=== PATIENT | male | born 1985 | race African-American/Black ===

== ENCOUNTER 2019-12-03 13:05 | Emergency (ER) | payer OTHER, MEDICAID, SELFPAY ==
--- NOTE | 2019-12-03 | XR_ITS ---
EXAMINATION: XR HAND, LEFT CLINICAL INFORMATION: Fall COMPARISON: 02/01/2007 TECHNIQUE: 3 views of the left hand and a scaphoid view of the wrist FINDINGS: There is an avulsion fracture at the tip of the ulnar styloid, possibly acute. There is a remote, healed fracture of the 5th metacarpal with residual volar angulation. There is a small ossification dorsal to the 4th DIP joint which may represent an avulsion fracture, likely chronic. Correlate clinically. IMPRESSION: Avulsion fracture at the tip of the ulnar styloid, possibly acute. Remote, healed fracture of the 5th metacarpal and probable remote avulsive injury at the dorsal aspect of the 4th DIP joint.
[2019-12-03 13:20] VITALS: BP 162/92; PULSE 94; RESP 16; TEMP 37.3; O2SAT 97; BMI 34.7
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
== END 2019-12-03 14:40 | disposition home or self-care (01) ==
PROVIDERS: Emergency Provider Emergency Medicine
DX: S52.615A Nondisplaced fracture of left ulna styloid process, initial encounter for closed fracture (principal); W17.89XA Other fall from one level to another, initial encounter; Y93.9 Activity, unspecified; Y92.9 Unspecified place or not applicable; Y99.9 Unspecified external cause status
CPT/HCPCS: 29125; 73110; 73130; 99284

== ENCOUNTER 2020-02-09 10:09 | Outpatient (REF) | payer OTHER, MEDICAID, SELFPAY | END 2020-02-09 10:10 | disposition home or self-care (01) | LOC: HO.LAB 10:09 | PROVIDERS: Visit Provider Internal Medicine | DX: Z20.828 Contact with and (suspected) exposure to other viral communicable diseases (principal) | CPT/HCPCS: C9803; U0003 ==

== ENCOUNTER 2020-02-22 23:20 | Emergency (ER) | payer OTHER, MEDICAID, SELFPAY ==
[2020-02-22 23:40] VITALS: BP 157/90; PULSE 93; RESP 20; TEMP 36.7; O2SAT 99; BMI 35.2
[2020-02-22] MEDS: Ketorolac Tromethamine 15 MG/ML VIAL IVPUSH (23:53)
[2020-02-22] MEDS: Acetaminophen 325 MG TABLET 975 MG PO (23:53)
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
--- NOTE | 2020-02-23 01:13 | PC.NURSE ---
CALL OUT PLACED TO [facility] @ DR DAS REQUEST @ [phone] DR DAS TAKES OVER CALL RIGHT AWAY
--- NOTE | 2020-02-23 01:33 | PC.NURSE ---
RETURN CALL FROM BETH @ [facility] @ THIS TIME ASKS TO SPEAK WITH DR PIPPA DAS TAKES OVER CALL
== END 2020-02-23 01:50 | disposition home or self-care (01) ==
PROVIDERS: Emergency Provider Student in an Organized Health Care Education/Training Program
DX: T23.361A Burn of third degree of back of right hand, initial encounter (principal); T31.0 Burns involving less than 10% of body surface; S60.511A Abrasion of right hand, initial encounter; X10.2XXA Contact with fats and cooking oils, initial encounter; Y93.G3 Activity, cooking and baking; Y92.000 Kitchen of unspecified non-institutional (private) residence as the place of occurrence of the external cause; Y99.9 Unspecified external cause status; Z23 Encounter for immunization
CPT/HCPCS: 90471; 90715; 96374; 99283; 99284; J1885

== ENCOUNTER 2020-03-01 10:51 | Emergency (ER) | payer OTHER, MEDICAID, SELFPAY ==
[2020-03-01 11:38] VITALS: BP 127/77; PULSE 86; RESP 16; TEMP 36.5; O2SAT 96; BMI 35.1
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
== END 2020-03-01 12:03 | disposition home or self-care (01) ==
LOC: HO.ED 12:00
PROVIDERS: Emergency Provider Emergency Medicine
DX: Z48.00 Encounter for change or removal of nonsurgical wound dressing (principal); T23.201D Burn of second degree of right hand, unspecified site, subsequent encounter; X10.2XXD Contact with fats and cooking oils, subsequent encounter
CPT/HCPCS: 99283; 99284

== ENCOUNTER 2020-04-11 00:16 | Emergency (ER) | payer MEDICAID, SELFPAY ==
[2020-04-11 00:21] VITALS: BP 153/92; PULSE 91; RESP 18; TEMP 36.7; O2SAT 97
== END 2020-04-11 00:46 | disposition left against medical advice (07) ==
PROVIDERS: Emergency Provider Emergency Medicine
DX: K08.89 Other specified disorders of teeth and supporting structures (principal)

== ENCOUNTER 2020-06-11 09:31 | Outpatient (REF) | payer MEDICAID, SELFPAY ==
[2020-06-11 11:23] LABS: COVID-19 Test Negative (Negative); IDNOW Serial# 55D5AD1C
== END 2020-06-11 09:32 | disposition home or self-care (01) ==
LOC: HO.LAB 09:31
PROVIDERS: Visit Provider Internal Medicine
DX: Z20.822 Contact with and (suspected) exposure to COVID-19 (principal)
CPT/HCPCS: 36415; 87635; C9803

== ENCOUNTER 2020-07-24 17:39 | Emergency (ER) | payer MEDICAID, SELFPAY ==
--- NOTE | ~2020-07-24 | XR_ITS ---
EXAMINATION: XR CHEST CLINICAL INFORMATION: Shortness of breath. COMPARISON: Multiple priors, most recent chest radiograph dated 11/13/2019 TECHNIQUE: Frontal view of the chest was obtained. FINDINGS: The lungs are clear. The cardiomediastinal silhouette is normal in size. There is no pleural effusion or pneumothorax. No acute osseous abnormality. XR/XR chest 1V IMPRESSION: No acute cardiopulmonary findings.
[2020-07-24 18:10] VITALS: BP 147/78; PULSE 73; RESP 22; TEMP 36.8; O2SAT 98; BMI 35.2
[2020-07-24] MEDS: predniSONE 20 MG TABLET 40 MG PO (19:46)
[2020-07-24] MEDS: Albuterol/Iprat 2.5/0.5MG 3 ML AMPUL.NEB INHALE (20:07)
[2020-07-24 20:11] VITALS: PULSE 87; O2SAT 92
[2020-07-24] MEDS: Albuterol Sulfate 90 MCG 8 GM INHALER 2 PUFF INHALE (20:20)
--- NOTE | 2020-07-24 20:48 | ED_ITS ---
HPI - Asthma General Chief Complaint: Upper Respiratory Symptoms Stated Complaint: asthma Time Seen by Provider: 07/24/20 19:01 Source: patient Mode of arrival: ambulatory History of Present Illness HPI Narrative: 35-year-old male with a past medical history of asthma presenting to the ED complaining of asthma exacerbation with worsening SOB and chest tightness x today. Reports intermittent mild nonproductive cough. Reports ran out of albuterol inhalers a few days ago. Denies fever, chills, LE edema, recent travel, history of blood clots, abdominal pain, nausea/vomiting complaint: asthma attack and shortness of breath Related Data Previous Rx's Medication Instructions Recorded albuterol sulfate 2 puff INHALATION Q4-6H PRN #6.7 g 07/24/20 prednisone 40 mg PO DAILY 5 Days #10 tab 07/24/20 Allergies Allergy/AdvReac Type Severity Reaction Status Date / Time No Known Allergies [NKA] Allergy Mild NA Verified 12/03/19 13:12 Review of Systems Review of Systems: Constitutional: No Fever, No Chills, No Fatigue, No Malaise Cardiovascular: +chest tightness, + SOB, No Dyspnea on Exertion, No Orthopnea, No Edema, No Palpitations Respiratory: + Cough, No Sputum, + Wheezing, No Smoke Exposure Gastrointestinal: No Nausea, No Vomiting, No Diarrhea, No Constipation, No Abdominal pain Musculoskeletal: No joint pain, No Myalgias, No Joint Swelling Skin: No Skin Lesions, No rash Neuro: No Headache Yes all other systems are reviewed and are negative PMFSH Past Medical History Medical History Asthma Social History Social History Alcohol intake: never Advance Directives: No Advance Directives Information Provided: No Physical Exam Vital Signs: Vital Signs: Last Vital Signs Temp 98.2 F 07/24/20 18:10 Pulse 87 07/24/20 20:11 Resp 22 H 07/24/20 18:10 BP 147/78 H 07/24/20 18:10 Pulse Ox 98 07/24/20 18:10 Body Mass Index 35.2 Const: General: cooperative and healthy appearing Orientation/consciou sness: patient oriented x3 Limitations: no limitations HENMT: Head: Yes normal to inspection Ears: hearing grossly normal bilaterally General nose exam: Normal external nose present Face and sinus: Yes normal facial exam Eyes: General: appearance normal, both eyes and all related structures EOM: EOMs intact bilaterally Neck: Neck: Yes normal visual inspection and Yes no meningeal signs Resp: Effort & Inspection: normal respiratory effort Auscultation: wheezes expiratory wheezes and throughout Cardio: Rate: regular rate Heart sounds: S1 normal heart sound present and S2 normal heart sound present GI: Inspection: Yes normal to inspection Skin: Rashes: no rashes Wounds: no wounds Neuro: General: patient oriented x3 and no meningeal signs Gait exam (Neuro): Normal gait present Extrem: General: Yes normal to inspection, Yes no pedal edema and Yes no calf tenderness Course Course Course Narrative: --COVID-19 negative. CXR unremarkable. On re-evaluation patient with lungs CTA, ambulating in the ED on phone, in no respiratory distress. Worrisome signs and symptoms and strict return precautions discussed. Supplied with albuterol inhaler MDM - Asthma MDM Narrative Medical decision making narrative: 35-year-old male with a past medical history of asthma presenting to the ED complaining of asthma exacerbation with worsening SOB and chest tightness x today. On exam initially tachypneic, NAD, nontoxic appearing, lungs with diffuse expiratory wheeze, no LE edema or calf tenderness. Patient refusing IV line. Concern for asthma exacerbation vs pneumonia vs COVID-19/viral syndrome. Low concern for severe sepsis Plan: CXR, COVID-19 testing, DuoNeb, prednisone, reassess Medical Records Attestation: I reviewed the patient's medical records. Lab Data Attestation: I reviewed the patient's lab results. Discharge Plan Discharge Clinical Impression: Asthma with acute exacerbation Patient Disposition: Home, Self-Care Instructions: Asthma (ED) Additional Instructions: Your COVID-19 was negative. Her x-ray was unremarkable. Your having an asthma exacerbation Use albuterol inhaler at home as well as prednisone If her symptoms persist or worsen, if constant worsening shortness of breath or chest pain or fever return to the ED Follow-up with your doctor Prescriptions: New albuterol sulfate 90 mcg/actuation HFA aerosol inhaler 2 puff inhalation Q4-6H PRN (Reason: shortness of breath or wheezing) Qty: 6.7 RF: 0 prednisone 20 mg tablet 40 mg PO DAILY 5 Days Qty: 10 RF: 0 Referrals: [facility] [Primary Care Provider] - 2 days
[2020-07-24 20:52] LABS: COVID-19 Test Negative (Negative)
== END 2020-07-24 21:08 | disposition home or self-care (01) ==
PROVIDERS: Physician Assistant; Emergency Provider Internal Medicine
DX: J45.901 Unspecified asthma with (acute) exacerbation (principal); Z79.899 Other long term (current) drug therapy; Z20.822 Contact with and (suspected) exposure to COVID-19
CPT/HCPCS: 36415; 71045; 87635; 94640; 99284

== ENCOUNTER 2020-08-29 16:47 | Emergency (ER) | payer MEDICAID, SELFPAY ==
--- NOTE | 2020-08-29 16:56 | PC.NURSE ---
PT LEFT THE WR @1650 STATING HE WOULD BE BACK AFTER PICKING UP HIS DAUGHTER
== END 2020-08-29 17:24 | disposition left against medical advice (07) ==
PROVIDERS: Emergency Provider Emergency Medicine
DX: J45.909 Unspecified asthma, uncomplicated (principal)

== ENCOUNTER 2020-09-04 11:24 | Emergency (ER) | payer MEDICAID, SELFPAY ==
[2020-09-04 11:33] VITALS: BP 150/97; PULSE 72; RESP 16; TEMP 37.1; O2SAT 99; BMI 36.6
== END 2020-09-04 12:18 | disposition left against medical advice (07) ==
PROVIDERS: Emergency Provider Emergency Medicine; PCP Internal Medicine
DX: J45.909 Unspecified asthma, uncomplicated (principal)
CPT/HCPCS: 99281; 99282

== ENCOUNTER 2020-09-04 18:45 | Emergency (ER) | payer MEDICAID, SELFPAY ==
[2020-09-04 18:50] VITALS: BP 106/75; PULSE 97; RESP 18; TEMP 36.9; O2SAT 96; BMI 36.6
--- NOTE | 2020-09-04 19:29 | ED_ITS ---
HPI - Asthma General Chief Complaint: Asthma Stated Complaint: asthma Time Seen by Provider: 09/04/20 19:28 Source: patient Limitations: no limitations History of Present Illness HPI Narrative: This is a 35-year-old male with a history of asthma, who has run out of his albuterol for his nebulizer, as well as his albuterol inhaler. The patient is noted wheezing over the last couple of days. He denies any cough or fever. Denies any recent cold symptoms. He does use tobacco. He denies any chest pain, or swelling in his lower extremities. Symptoms are described as moderate, worse with exertion Related Data Previous Rx's Medication Instructions Recorded albuterol sulfate 2 puff INHALATION Q4-6H PRN #8.5 g 09/04/20 albuterol sulfate 2.5 mg INHALATION Q4-6H PRN #30 ea 09/04/20 prednisone 40 mg PO DAILY #10 tab 09/04/20 Allergies Allergy/AdvReac Type Severity Reaction Status Date / Time No Known Allergies [NKA] Allergy Mild NA Verified 12/03/19 13:12 Review of Systems Review of Systems: Yes all other systems are reviewed and are negative Constitutional: Constitutional: Reports as per HPI and Denies fever(s) Eyes: Eyes: Reports as per HPI and Reports no additional eye complaints ENT: Reports system reviewed and no additional complaints, except as documented, Reports as per HPI, Denies nasal congestion, Denies nasal discharge and Denies sore throat Cardiovascular: Cardiovascular: Reports as per HPI, Denies chest pain and Reports dyspnea Respiratory: Respiratory: Reports as per HPI, Denies cough, Reports dyspnea and Reports wheezing Gastrointestinal: Gastrointestinal: Reports as per HPI, Denies abdominal pain, Denies diarrhea and Denies vomiting Genitourinary: Genitourinary: Reports as per HPI, Denies hematuria, Denies dysuria and Denies urinary frequency Musculoskeletal: Musculoskeletal: Reports no additional musculoskeletal complaints and Denies numbness Integumentary/Breasts: Skin/Breast: Reports as per HPI and Denies rash Neurologic: Reports as per HPI, Denies focal weakness, Denies numbness and Denies Sensory deficit (Neuro) Psychiatric: Psychiatric: Reports no additional psychiatric complaints and Reports as per HPI Endocrine: Endocrine: Reports no additional endocrine complaints and Reports as per HPI Hematologic/Lymphatic: Hematologic/Lymphatic: Reports no additional hematologic/lymphatic complaints, Reports as per HPI and Reports other (No peripheral edema) Allergic/Immunologic: Allergic/Immunologic: Reports wheezing [facility] Past Medical History Medical History Asthma Social History Social History Alcohol intake: never Advance Directives: No Physical Exam Vital Signs: Vital Signs: Last Vital Signs Temp 98.4 F 09/04/20 18:50 Pulse 87 09/04/20 19:42 Resp 18 09/04/20 18:50 BP 106/75 09/04/20 18:50 Pulse Ox 96 09/04/20 18:50 Body Mass Index 36.6 Const: General: cooperative, no acute distress and alert Orientation/consciousness: patient oriented x3 HENMT: Head: Yes normal to inspection Eyes: General: appearance normal, both eyes and all related structures Eyelids: Yes eyelids normal Conjunctivae: conjunctivae normal Pupils: Equal, round and reactive pupils present Neck: Neck: Yes normal visual inspection and Yes supple Chest: Chest palpation & inspection: normal inspection of the chest Resp: Effort & Inspection: normal respiratory effort, able to speak in complete sentences, no cough, no respiratory distress, no use of accessory muscles and prolonged expiratory phase Auscultation: not clear to auscultation bilaterally and wheezes (Expiratory) Cardio: Rate: regular rate Rhythm: regular rhythm Heart sounds: S1 normal heart sound present, S2 normal heart sound present, no gallops, no murmurs and no rubs GI: Palpation (GI): Soft to palpation, nontender and Other GI palpation findings present (Non-distended) Auscultation: normal bowel sounds Skin: General skin exam: no rashes or lesions noted Neuro: General: patient oriented x3, no focal motor deficits and CN's II-XI in tact bilaterally Cranial nerves: Yes Equal, round and reactive pupils present Cognition (Neuro): normal cognition Motor exam (neuro): 5/5 motor strength present throughout Sensory Exam: No Sensory deficit (Neuro) Extrem: General: Yes normal to inspection and Yes no pedal edema Psych: Appearance: grossly normal Affect: normal affect MDM - Asthma MDM Narrative Medical decision making narrative: Patient no distress, pulse ox 99% on room air, but with moderate wheezing. Patient was given a DuoNeb treatment and prednisone 60 mg p.o.. His albuterol MDI and albuterol for his nebulizer being refilled and he is being put on prednisone 40 mg daily for 5 days. Discharge Plan Discharge Clinical Impression: Acute asthma exacerbation Patient Disposition: Home, Self-Care Instructions: Asthma (ED) Additional Instructions: Follow-up with primary care physician. Return for any new or worsened symptoms. Use the albuterol prednisone as prescribed. Prescriptions: New albuterol sulfate 90 mcg/actuation HFA aerosol inhaler 2 puff inhalation Q4-6H PRN (Reason: shortness of breath or wheezing) Qty: 8.5 RF: 2 albuterol sulfate 2.5 mg/0.5 mL solution for nebulization 2.5 mg inhalation Q4-6H PRN (Reason: shortness of breath or wheezing) Qty: 30 RF: 1 prednisone 20 mg tablet 40 mg PO DAILY Qty: 10 RF: 0 Discontinued albuterol sulfate 90 mcg/actuation HFA aerosol inhaler 2 puff inhalation Q4-6H PRN (Reason: shortness of breath or wheezing) Qty: 6.7 RF: 0 prednisone 20 mg tablet 40 mg PO DAILY 5 Days Qty: 10 RF: 0 Stand Alone Forms: Work/School Release Interventions: ED Discharge Assessment Last Done: 09/04/20 19:58 Discharge Date/Time: 09/04/20 19:59
[2020-09-04] MEDS: Albuterol/Iprat 2.5/0.5MG 3 ML AMPUL.NEB INHALE (19:41)
[2020-09-04 19:42] VITALS: PULSE 87; O2SAT 98
[2020-09-04] MEDS: predniSONE 20 MG TABLET 60 MG PO (19:52)
== END 2020-09-04 19:59 | disposition home or self-care (01) ==
PROVIDERS: Emergency Provider Emergency Medicine; PCP Internal Medicine
DX: J45.901 Unspecified asthma with (acute) exacerbation (principal)
CPT/HCPCS: 94640; 99283; 99284

== ENCOUNTER 2020-10-15 21:17 | Emergency (ER) | payer MEDICAID, SELFPAY ==
--- NOTE | ~2020-10-15 | XR_ITS ---
EXAMINATION: XR CHEST CLINICAL INFORMATION: Shortness of breath COMPARISON: 07/24/2020 TECHNIQUE: Frontal view of the chest was obtained. FINDINGS: The lungs are well expanded. There is no focal consolidation, edema, or effusion. No pneumothorax. The cardiomediastinal silhouette is within normal limits. No acute osseous abnormality. XR/XR chest 1V IMPRESSION: Clear lungs.
[2020-10-15 21:28] VITALS: BP 141/82; PULSE 86; RESP 20; TEMP 36.5; O2SAT 96; BMI 35.9
[2020-10-15 22:05] LABS: MANUAL DIFF FLAG NO
[2020-10-15 22:06] LABS: Basophils Percent Auto 0.4 % (0-2); Eosinophils Absolute Auto 0.3 X10*3/uL (0.0-0.4); Eosinophils Percent Auto 2.7 % (0-4); Hematocrit 47.3 % (42-52); Hemoglobin 16.2 g/dl (14.0-18.0); Imm Gran Abs Auto 0.04 X10*3/uL (0.00-0.03); Imm Gran Pct Auto 0.4 % (0.0-0.4); Lymphocytes Absolute Auto 3.3 X10*3/uL (1.2-4.9); Lymphocytes Percent Auto 32.7 % (20-40); Mean Corpuscular HGB Conc 34.2 g/dl (31.0-36.0); Mean Corpuscular Hemoglobin 29.2 pg (27.0-33.0); Mean Corpuscular Volume 85.2 fL (80-98); Mean Platelet Volume 10.3 fL (9.4-12.4); Monocytes Absolute Auto 0.8 X10*3/uL (0.1-1.2); Monocytes Percent Auto 7.6 % (2-11); Neutrophils Absolute Auto 5.6 X10*3/uL (2.0-8.3); Neutrophils Percent Auto 56.2 % (45-73); Platelet Count 279 X10*3/uL (160-400); Red Blood Count 5.55 X10*6/uL (4.60-5.80); Red Cell Distribution Width 13.2 % (11.0-16.0)
[2020-10-15 22:26] LABS: COVID-19 Test Negative (Negative); IDNOW Serial# 9DD0AD1C
[2020-10-15 22:28] LABS: Alanine Aminotransferase 50 U/L (0-40); Albumin Level 4.6 g/dL (3.5-5.0); Alkaline Phosphatase 108 U/L (39-117); Anion Gap 15 (12-20); Aspartate Amino Transferase 33 U/L (5-37); Bilirubin Total 0.5 mg/dL (0.0-1.0); Blood Urea Nitrogen 9 mg/dL (9-16); Calcium 9.2 mg/dL (8.4-10.2); Carbon Dioxide 22 mmol/L (22-29); Chloride 110 mmol/L (96-108); Creatinine Clr Calc Pharmacy 145.3; Estimated Glomerular Filt Rate > 60; Glucose Random 96 mg/dL (60-115); Potassium 3.7 mmol/L (3.3-5.1); Sodium 143 mmol/L (135-145); Total Protein 7.2 g/dL (6.5-8.0)
--- NOTE | 2020-10-15 23:57 | ED.SOB ---
HPI - SOB/Dyspnea General Chief Complaint: Dyspnea Stated Complaint: Asthma Time Seen by Provider: 10/15/20 23:56 Source: patient Mode of arrival: ambulatory Limitations: no limitations History of Present Illness HPI Narrative: 35-year-old male with history of asthma came in for evaluation of asthma and wheezing. This is a 35-year-old male with a smoker with long history of asthma since childhood came in with shortness of breath and wheezing for the past couple days, patient lost his inhaler last week unable to use inhaler. Patient declined any recent hospitalization or ICU admission, patient also declined any history of endotracheal intubation for his asthma. No sick contacts, no recent travel. Related Data Previous Rx's Medication Instructions Recorded albuterol sulfate 2.5 mg/0.5 mL 2.5 mg INHALATION Q4-6H PRN #30 ea 09/04/20 solution for nebulization albuterol sulfate 90 mcg/actuation 2 puff INHALATION Q4-6H PRN #8.5 g 09/04/20 aerosol inhaler prednisone 20 mg tablet 40 mg PO DAILY #10 tab 09/04/20 albuterol sulfate 90 mcg/actuation 1 inh INHALATION QID PRN #6.7 g 10/16/20 aerosol inhaler prednisone 20 mg tablet 20 mg PO BID #10 tab 10/16/20 Allergies Allergy/AdvReac Type Severity Reaction Status Date / Time No Known Allergies [NKA] Allergy Mild NA Verified 12/03/19 13:12 Review of Systems Review of Systems: All other systems are reviewed and are negative Constitutional: Reports as per HPI and Reports no additional constitutional complaints Eyes: Reports as per HPI and Reports no additional eye complaints Reports system reviewed and no additional complaints, except as documented Cardiovascular: Reports as per HPI and Reports no additional cardiovascular complaints Respiratory: Reports as per HPI and Reports no additional respiratory complaints Gastrointestinal: Reports as per HPI and Reports no additional gastrointestinal complaints Genitourinary: Reports no additional female genitourinary complaints Musculoskeletal: Reports no additional musculoskeletal complaints Skin/Breast: Reports system reviewed and no additional complaints, except as docu Psychiatric: Reports no additional psychiatric complaints Endocrine: Reports no additional endocrine complaints Hematologic/Lymphatic: Reports no additional hematologic/lymphatic complaints Allergic/Immunologic: Reports no additional allergic/immunologic complaints Reports system reviewed and no additional complaints, except as documented and Reports Abnormal speech present [facility] Past Medical History Medical History Asthma Social History Social History Alcohol intake: never Advance Directives: No Physical Exam Vital Signs: Vital Signs: Last Vital Signs Temp 97.7 F 10/15/20 21:28 Pulse 83 10/16/20 00:03 Resp 20 10/15/20 21:28 BP 141/82 H 10/15/20 21:28 Pulse Ox 96 10/15/20 21:28 Body Mass Index 35.9 Vital signs have been reviewed as appeared to be correct. Blood pressure normal. Heart rate normal. Respiration rate normal. Temperature normal. Oxygen saturation normal. Appearance: Alert. Oriented X3. No acute distress. Head: Normal external exam. Normocephalic. Atraumatic. No Townsend signs noted. No raccoon eyes noted Eyes: PERRLA. EOMI. Conjunctiva and sclera normal. Eyelids normal. ENT: TM's Normal. Pharynx normal. Uvula midline. Moist mucous membranes. No trismus noted. No drooling noted. No muffled voice noted. Neck: Normal inspection. Neck supple. FROM. No adenopathy. Thyroid Normal. No meningeal signs. No neck mass noted. CVS: Normal heart rate and rhythm. Heart sound normal. No murmurs noted. Pulses normal throughout. Respiratory: No respiratory distress. Painless inspiration. Breath sounds normal. Diffuse mild expiratory wheezing with prolonged expiration. Chest nontender. No accessory muscle usage noted or decreased air movement noted. Abdomen: Soft and nontender. Bowel sounds normal in all 4 quadrants. No distention noted. No organomegaly noted. No visible injury noted. Back: No CVA tenderness. Full range of motion noted. Skin: Skin warm and dry. Normal skin color. Normal skin turgor. No rashes/lesions/lacerations noted. Extremities: No lower extremity edema. Extremities exhibit normal range of motion. Extremities nontender. Neuro: Oriented X 3. Cranial nerve exam: II-XII are grossly intact No motor deficit. No sensory deficit. Reflexes normal. Course Course Course Narrative: Assessment and plan. 35-year-old male history of asthma presented with wheezing and difficulty breathing due to asthma exacerbation. Patient feels better after received steroid and bronchodilator in the emergency department. Will discharge home on prednisone/albuterol inhaler. MDM - SOB/Dyspnea Lab Data Attestation: I reviewed the patient's lab results. Result diagrams: 10/15/20 21:56 10/15/20 21:56 Labs: Lab Results 10/15/20 10/15/20 10/15/20 Range/Units 21:56 21:56 21:56 WBC 10.0 (4.8-10.8) X10*3/uL RBC 5.55 (4.60-5.80) X10*6/uL Hgb 16.2 (14.0-18.0) g/dl Hct 47.3 (42-52) % MCV 85.2 (80-98) fL MCH 29.2 (27.0-33.0) pg MCHC 34.2 (31.0-36.0) g/dl RDW 13.2 (11.0-16.0) % Plt Count 279 (160-400) X10*3/uL MPV 10.3 (9.4-12.4) fL Immature Gran % (Auto) 0.4 (0.0-0.4) % Neut % (Auto) 56.2 (45-73) % Lymph % (Auto) 32.7 (20-40) % [place] % (Auto) 7.6 (2-11) % Eos % (Auto) 2.7 (0-4) % Baso % (Auto) 0.4 (0-2) % Lymph # (Auto) 3.3 (1.2-4.9) X10*3/uL [place] # (Auto) 0.8 (0.1-1.2) X10*3/uL Eos # (Auto) 0.3 (0.0-0.4) X10*3/uL Baso # (Auto) 0.0 (0.0-0.2) X10*3/uL Abs Immat Gran (auto) 0.04 H (0.00-0.03) X10*3/uL Absolute Neuts (auto) 5.6 (2.0-8.3) X10*3/uL Absolute Nucleated RBC 0.000 (0.0-0.012) X10*3/uL Nucleated RBC % (auto) 0.0 (0.0-0.2) /100WBC Sodium 143 (135-145) mmol/L Potassium 3.7 (3.3-5.1) mmol/L Chloride 110 H (96-108) mmol/L Carbon Dioxide 22 (22-29) mmol/L Anion Gap 15 (12-20) BUN 9 (9-16) mg/dL Creatinine 0.95 (0.5-1.4) mg/dL Estim Creat Clear Calc 145.3 Estimated GFR > 60 Random Glucose 96 (60-115) mg/dL Calcium 9.2 (8.4-10.2) mg/dL Total Bilirubin 0.5 (0.0-1.0) mg/dL AST 33 (5-37) U/L ALT 50 H (0-40) U/L Alkaline Phosphatase 108 (39-117) U/L Total Protein 7.2 (6.5-8.0) g/dL Albumin 4.6 (3.5-5.0) g/dL COVID-19 (KASEY) Negative (Negative) COVID-19 Clin Com See Note Imaging Data Chest x-ray: Radiologist's impression: Unremarkable chest x-ray. Discharge Plan Discharge Clinical Impression: Asthma with exacerbation Qualifiers: Asthma severity: moderate Asthma persistence: unspecified Qualified Code(s): J45.901 - Unspecified asthma with (acute) exacerbation Patient Disposition: Home, Self-Care Instructions: Asthma (ED) Prescriptions: New prednisone 20 mg tablet 20 mg PO BID Qty: 10 RF: 0 albuterol sulfate 90 mcg/actuation HFA aerosol inhaler 1 inh inhalation QID PRN (Reason: shortness of breath or wheezing) Qty: 6.7 RF: 0 No Action albuterol sulfate 90 mcg/actuation HFA aerosol inhaler 2 puff inhalation Q4-6H PRN (Reason: shortness of breath or wheezing) Qty: 8.5 RF: 2 albuterol sulfate 2.5 mg/0.5 mL solution for nebulization 2.5 mg inhalation Q4-6H PRN (Reason: shortness of breath or wheezing) Qty: 30 RF: 1 prednisone 20 mg tablet 40 mg PO DAILY Qty: 10 RF: 0 Referrals: Sabrina Sandoval MD [Primary Care Provider] - 2 days Stand Alone Forms: Work/School Release
[2020-10-16] MEDS: Albuterol Sulfate (0.083%) 2.5 MG/3 ML VIAL.NEB 5 MG INHALE (00:02)
[2020-10-16] MEDS: Albuterol/Iprat 2.5/0.5MG 3 ML AMPUL.NEB INHALE (00:02)
[2020-10-16 00:03] VITALS: PULSE 83; O2SAT 95
[2020-10-16] MEDS: predniSONE 20 MG TABLET 60 MG PO (00:04)
[2020-10-16] MEDS: Albuterol Sulfate 90 MCG 8 GM INHALER 2 PUFF INHALE (00:10)
== END 2020-10-16 01:04 | disposition home or self-care (01) ==
PROVIDERS: Emergency Provider Emergency Medicine; PCP Internal Medicine
DX: J45.901 Unspecified asthma with (acute) exacerbation (principal); Z20.822 Contact with and (suspected) exposure to COVID-19
CPT/HCPCS: 36415; 71045; 80053; 85025; 87635; 94640; 94644; 99283; 99284

== ENCOUNTER 2020-12-04 20:34 | Emergency (ER) | payer MEDICAID, SELFPAY | END 2020-12-04 21:47 | disposition left against medical advice (07) | LOC: HO.ED 21:44 | PROVIDERS: Emergency Provider Emergency Medicine; PCP Internal Medicine | DX: K08.89 Other specified disorders of teeth and supporting structures (principal) ==

== ENCOUNTER 2020-12-07 09:28 | Outpatient (REF) | payer MEDICAID, SELFPAY | END 2020-12-07 09:29 | disposition home or self-care (01) | LOC: HO.LAB 09:28 | PROVIDERS: PCP Internal Medicine; Visit Provider Internal Medicine | DX: Z20.822 Contact with and (suspected) exposure to COVID-19 (principal) | CPT/HCPCS: C9803; U0003; U0005 ==

== ENCOUNTER 2021-01-03 03:41 | Emergency (ER) | payer MEDICAID, SELFPAY ==
[2021-01-03 03:58] VITALS: BP 148/67; PULSE 72; RESP 16; TEMP 36.2; O2SAT 97; BMI 35.9
--- NOTE | 2021-01-03 04:34 | ED.DENTAL ---
HPI - Dental/Oral General Chief complaint: Dental/Oral Stated complaint: dental pain Time Seen by Provider: 01/03/21 04:25 Source: patient Mode of arrival: ambulatory Limitations: no limitations History of Present Illness HPI Narrative: 35-year-old male who presents emergency department for evaluation right lower jaw pain. The patient states that he has a tooth in his right lower jaw that is chipped. He had dental pain approximately 1 week prior and had a tooth extracted in the right lower jaw. He states that he was feeling better until yesterday when he started to get swelling and pain in his right lower jaw. He states that the pain is a constant, aching sensation which is moderate in intensity. The pain is worse if he tries to chew food with his right side of his mouth. He denied any difficulty swallowing. He denied headache. He denied fever or chills. Related Data Previous Rx's Medication Instructions Recorded albuterol sulfate 2.5 mg/0.5 mL 2.5 mg (0.5 mL) INHALATION Q4-6H 09/04/20 solution for nebulization PRN #30 ea albuterol sulfate 90 mcg/actuation 2 puff INHALATION Q4-6H PRN #8.5 g 09/04/20 aerosol inhaler prednisone 20 mg tablet 40 mg PO DAILY #10 tab 09/04/20 albuterol sulfate 90 mcg/actuation 1 inh INHALATION QID PRN #6.7 g 10/16/20 aerosol inhaler prednisone 20 mg tablet 20 mg PO BID #10 tab 10/16/20 clindamycin HCl 300 mg capsule 300 mg PO TID 7 Days #21 cap 01/03/21 (Cleocin HCl) ibuprofen 600 mg tablet 600 mg PO Q6H PRN #30 tab 01/03/21 Allergies Allergy/AdvReac Type Severity Reaction Status Date / Time No Known Allergies [NKA] Allergy Mild NA Verified 12/03/19 13:12 Review of Systems Review of Systems: Yes all other systems are reviewed and are negative [facility] Past Medical History [facility] Narrative: Past surgical history: None social history: He does smoke cigarettes. He denies alcohol use. He denies drug use. Medical History Asthma Social History Social History Alcohol intake: never Advance Directives: No Advance Directives Information Provided: Yes Physical Exam Vital Signs: Vital Signs: Last Vital Signs Temp 97.1 F 01/03/21 03:58 Pulse 72 01/03/21 03:58 Resp 16 01/03/21 03:58 BP 148/67 H 01/03/21 03:58 Pulse Ox 97 01/03/21 03:58 Body Mass Index 35.9 Const: Other: Awake, alert, male patient, he does not appear to be in distress, he is very pleasant cooperative. Orientation/consciousness: oriented to person and oriented to place HENMT: Head: Yes normal to inspection Ears: external ears normal General nose exam: Normal external nose present Face and sinus: Yes other (Mild tenderness with palpation of the right lower jaw, no swelling, no eryt) Mouth: Normal oral and palatal mucosa present Teeth image: 1. Tooth number 30: Volume loss with a large healing, slight erythema to the gingiva, tender to palpation Eyes: Pupils: Equal, round and reactive pupils present Neck: Neck: Yes normal visual inspection, Yes no lymphadenopathy, Yes no meningeal signs, Yes trachea midline and Yes supple Resp: Effort & Inspection: normal respiratory effort Neuro: General: oriented to person, oriented to place and no meningeal signs Cranial nerves: Yes Equal, round and reactive pupils present Psych: Appearance: grossly normal Mental Status: mental status grossly normal Speech and movement: Normal speech and movement present Course Course Course Narrative: 35-year-old male who presents emergency department for evaluation of 1 day of right lower jaw pain and swelling. Patient does have dental caries in his right lower jaw with erythema around the gingiva of tooth number 32. Patient's presentation is consistent with dental infection. Patient was started on clindamycin 300 mg 3 times a day for 7 days. He is advised to take Tylenol and he was prescribed ibuprofen 600 mg 3 times a day as needed for pain. Patient was given a work note return on 01/04/2021. Discharge Plan Discharge Clinical Impression: Dental infection, Pain, dental Patient Disposition: Home, Self-Care Instructions: Toothache (ED) Additional Instructions: Your pain and swelling in the jaw is consistent with a dental infection. Take clindamycin 300 mg pills, 1 pill 3 times a day (every 6 hours) for 7 days. Take ibuprofen 600 mg pills, 1 pill 3 times a day (every 6 hours) as needed for pain Take Tylenol (acetaminophen) 500 mg pills, 2 pills every 4 to 6 hours as needed for pain. Follow-up with your dentist in 7-10 days. Please return to the emergency department if your symptoms get worse or if you develop any symptoms that are concerning to you. Prescriptions: New clindamycin HCl [Cleocin HCl] 300 mg capsule 300 mg PO TID 7 Days Qty: 21 RF: 0 ibuprofen 600 mg tablet 600 mg PO Q6H PRN (Reason: pain) Qty: 30 RF: 0 No Action albuterol sulfate 90 mcg/actuation HFA aerosol inhaler 2 puff inhalation Q4-6H PRN (Reason: shortness of breath or wheezing) Qty: 8.5 RF: 2 albuterol sulfate 2.5 mg/0.5 mL solution for nebulization 2.5 mg inhalation Q4-6H PRN (Reason: shortness of breath or wheezing) Qty: 30 RF: 1 prednisone 20 mg tablet 40 mg PO DAILY Qty: 10 RF: 0 prednisone 20 mg tablet 20 mg PO BID Qty: 10 RF: 0 albuterol sulfate 90 mcg/actuation HFA aerosol inhaler 1 inh inhalation QID PRN (Reason: shortness of breath or wheezing) Qty: 6.7 RF: 0 Stand Alone Forms: Work/School Release
== END 2021-01-03 05:35 | disposition home or self-care (01) ==
PROVIDERS: Emergency Provider Emergency Medicine Emergency Medical Services; PCP Internal Medicine
DX: K04.7 Periapical abscess without sinus (principal); Z79.899 Other long term (current) drug therapy
CPT/HCPCS: 99283

== ENCOUNTER 2021-05-30 17:01 | Emergency (ER) | payer MEDICAID, SELFPAY ==
--- NOTE | ~2021-05-30 | XR_ITS ---
EXAMINATION: XR CHEST CLINICAL INFORMATION: Shortness of breath COMPARISON: 10/16/2020 TECHNIQUE: Frontal view of the chest was obtained. FINDINGS: Lungs are clear. No focal consolidation or mass. Normal pulmonary vascularity. No pleural effusion or pneumothorax. Normal heart size. No acute osseous abnormality. XR/XR chest 1V IMPRESSION: No acute pulmonary disease. No significant change from prior study.
[2021-05-30 17:47] VITALS: BP 149/77; PULSE 81; RESP 20; TEMP 37; O2SAT 96; BMI 35.9
== END 2021-05-30 19:25 | disposition left against medical advice (07) ==
PROVIDERS: Emergency Provider Emergency Medicine; PCP Internal Medicine
DX: J45.901 Unspecified asthma with (acute) exacerbation (principal)
CPT/HCPCS: 71045; 99282; 99283

== ENCOUNTER 2021-10-13 23:13 | Emergency (ER) | payer MEDICAID, SELFPAY ==
--- NOTE | 2021-10-13 23:25 | PC.NURSE ---
Pt not found in [facility] when this RN attempted to Triage him. Registration unsure where pt went.
== END 2021-10-13 23:55 | disposition left against medical advice (07) ==
LOC: HO.ED 23:54
PROVIDERS: Emergency Provider Emergency Medicine
DX: J45.909 Unspecified asthma, uncomplicated (principal)

== ENCOUNTER 2021-11-12 14:14 | Emergency (ER) | payer MEDICAID, SELFPAY ==
[2021-11-12 14:40] VITALS: BP 145/69; PULSE 86; RESP 18; TEMP 36.6; O2SAT 98; BMI 36.6
--- NOTE | 2021-11-12 14:43 | PC.NURSE ---
pT SPEAKING IN FULL SENTENCES, C/O ABOUT HAVING TO [facility] MULTIPLE TIMES DUE TO WAIT. PT REFUSING ALL BLOODWORK/IMAGING THAT CAN BE PROVIDED IN TRIAGE. EDUCATION PROVIDED REGARDING ROSEANNE, WORK UP IN WAITING ROOM. PT REFUSED TO VERBALIZE EDUCATION PROVIDED. PT STATED IF IT'S GOING TO BE A LONG TIME I'M JUST GOING TO LEAVE . PER PT MY BREATHING IS NO JOKE AND THIS IS BULLSHIT. 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
[2021-11-12 15:16] LABS: IDNOW Serial# 16C4AD1C
[2021-11-12 15:17] LABS: COVID-19 Test Negative (Negative)
== END 2021-11-12 22:45 | disposition left against medical advice (07) ==
PROVIDERS: Internal Medicine; Emergency Provider Emergency Medicine; PCP Internal Medicine
DX: J45.909 Unspecified asthma, uncomplicated (principal); R06.00 Dyspnea, unspecified; Z20.822 Contact with and (suspected) exposure to COVID-19
CPT/HCPCS: 87635; 99282; 99283

== ENCOUNTER 2022-10-15 11:49 | Emergency (ER) | payer MEDICAID, SELFPAY ==
--- NOTE | 2022-10-15 12:32 | PC.NURSE ---
PT REPORTED TO TRIAGE NURSE AFTER ARRIVING STATING HE FOUND HIS MDI AND DEPARTED THE ED
== END 2022-10-15 12:34 | disposition left against medical advice (07) ==
PROVIDERS: Emergency Provider Emergency Medicine; PCP Internal Medicine
DX: J45.909 Unspecified asthma, uncomplicated (principal)

== ENCOUNTER 2023-01-03 11:43 | Outpatient (REF) | payer MEDICAID, SELFPAY ==
[2023-01-03 13:19] LABS: MANUAL DIFF FLAG NO
[2023-01-03 13:44] LABS: Basophils Percent Auto 0.4 % (0-2); Eosinophils Absolute Auto 0.3 X10*3/uL (0.0-0.4); Eosinophils Percent Auto 3.2 % (0-4); Hematocrit 50.1 % (42.0-52.0); Hemoglobin 16.6 g/dl (14.0-18.0); Imm Gran Abs Auto 0.05 X10*3/uL (0.00-0.03); Imm Gran Pct Auto 0.5 % (0.0-0.4); Lymphocytes Absolute Auto 2.5 X10*3/uL (1.2-4.9); Lymphocytes Percent Auto 23.9 % (20-40); Mean Corpuscular HGB Conc 33.1 g/dl (31.0-36.0); Mean Corpuscular Hemoglobin 28.5 pg (27.0-33.0); Mean Corpuscular Volume 85.9 fL (80.0-98.0); Mean Platelet Volume 10.9 fL (9.4-12.4); Monocytes Absolute Auto 0.7 X10*3/uL (0.1-1.2); Monocytes Percent Auto 6.7 % (2-11); Neutrophils Absolute Auto 6.7 x10*3/uL (2.0-8.3); Neutrophils Percent Auto 65.3 % (45-73); Platelet Count 317 X10*3/uL (160-400); Red Blood Count 5.83 X10*6/uL (4.60-5.80); White Blood Count 10.2 X10*3/uL (4.8-10.8)
[2023-01-03 13:52] LABS: Estimated Average Glucose 103 mg/dL; Hemoglobin A1c % 5.2 % (<6.0)
[2023-01-03 14:05] LABS: Alanine Aminotransferase 30 U/L (0-40); Albumin Level 4.4 g/dL (3.5-5.0); Alkaline Phosphatase 103 U/L (39-117); Anion Gap 10 (12-20); Aspartate Amino Transferase 25 U/L (5-37); Bilirubin Direct 0.2 mg/dL (0.0-0.5); Bilirubin Total 0.5 mg/dL (0.0-1.0); Blood Urea Nitrogen 9 mg/dL (9-16); Carbon Dioxide 25 mmol/L (22-29); Chloride 109 mmol/L (96-108); Cholesterol 200 mg/dL (<200); Estimated Glomerular Filt Rate > 60; Glucose Random 93 mg/dL (60-115); HDL Cholesterol 35 mg/dL (>40); LDL Cholesterol Calculated 128 mg/dL (<100); Potassium 4.2 mmol/L (3.3-5.1); Sodium 140 mmol/L (135-145); Total Protein 7.2 g/dL (6.5-8.0); Triglycerides 185 mg/dL (<150)
[2023-01-04 04:38] LABS: HIV AB/AG Nonreactive (Nonreactive); HIV Num 1 0.08 S/CO (0.00-0.99)
[2023-01-04 05:01] LABS: ~HepC Num1 0.04 S/CO (0.00-0.79); ~Hepatitis C Antibody Nonreactive (Nonreactive)
== END 2023-01-03 11:44 | disposition home or self-care (01) ==
LOC: HO.HHCL 11:43
PROVIDERS: Visit Provider Internal Medicine
DX: Z00.00 Encounter for general adult medical examination without abnormal findings (principal)
CPT/HCPCS: 36415; 80048; 80061; 80076; 83036; 85025; 86803; 87389

== ENCOUNTER 2023-02-19 10:16 | Emergency (ER) | payer MEDICAID, SELFPAY | END 2023-02-19 10:42 | disposition left against medical advice (07) | PROVIDERS: Emergency Provider Emergency Medicine; PCP Internal Medicine | DX: J45.909 Unspecified asthma, uncomplicated (principal) ==

== ENCOUNTER 2024-01-21 07:52 | Emergency (ER) | payer MEDICAID, SELFPAY | END 2024-01-21 08:21 | disposition left against medical advice (07) | PROVIDERS: Emergency Provider Emergency Medicine; PCP Internal Medicine | DX: Z53.21 Procedure and treatment not carried out due to patient leaving prior to being seen by health care provider (principal) ==